=== PATIENT | male | born 1950 | race Caucasian/White ===

== ENCOUNTER → 2019-11-07 19:00 | Outpatient (CLI) | payer MEDICARE | END | disposition home or self-care (01) | LOC: D.LABREF 19:00 | PROVIDERS: ATTEND Orthopaedic Surgery | DX: M17.12 Unilateral primary osteoarthritis, left knee (principal) ==

== ENCOUNTER 2019-11-26 06:40 | Inpatient (IN) | payer MEDICARE ==
--- NOTE | 2019-11-21 12:04 | NUR ---
T- 98.1 BP LA- 127/78 RR- 16 HR- 76 POX- 94%
[2019-11-21 12:24] LABS: CALC OSMOLALITY 268 mosm/kg (275-300); CARBON DIOXIDE 32.4 mmol/L (21.0-32.0); CHLORIDE - SERUM 98 mmol/L (98-107); CREATININE - SERUM 0.9 mg/dL (0.6-1.3); GLUCOSE 98 mg/dL (74-106); POTASSIUM - SERUM 3.6 mmol/L (3.5-5.1); SODIUM 134 mmol/L (136-145); UREA NITROGEN 14 mg/dL (7-18); eGFR NON AFRICAN AMERICAN 89 mL/min (90-120)
[2019-11-21 12:28] LABS: APTT 28.3 SECONDS (22.8-39.4); INR 0.97 (0.85-1.17); PROTIME 12.9 SECONDS (11.6-15.0)
[2019-11-21 12:29] LABS: BASOPHILS 0.4 % (0-2); HEMATOCRIT 42.1 % (42.0-54.0); HEMOGLOBIN 14.5 g/dL (13.5-17.5); IMMATURE GRANULOCYTES 0.6 % (0-5); LYMPHOCYTES 35.6 % (15-50); MCH 31.6 pg (26.0-34.0); MCHC 34.4 g/dL (31.0-37.0); MCV 91.7 fL (80.0-100.0); MONOCYTES 7.3 % (2-11); NEUTROPHILS 54.1 % (40-80); PLATELET COUNT 291 10x3/uL (130-400); RBC 4.59 10x6/uL (4.20-6.10); RDW 13.1 % (11.5-14.5); WBC 7.1 10x3/uL (4.8-10.8)
[2019-11-21 12:55] LABS: BACTERIA MANY /hpf (NEGATIVE); BILIRUBIN NEGATIVE (NEGATIVE); EPITHELIAL CELLS 0-5 /hpf (0-5); GLUCOSE NEGATIVE (NEGATIVE); KETONE NEGATIVE (NEGATIVE); NITRITE POSITIVE (NEGATIVE); RED CELLS - URINE OCC /hpf (0-5); UROBILINOGEN NORMAL (NORMAL); WHITE CELLS - URINE 25-50 /hpf (NEGATIVE)
[2019-11-26] VITALS (13 sets, daily range): BP systolic 113–152; BP diastolic 61–90; BMI 34.8
[~2019-11-26] VITALS: Ht 157.5 cm; Wt 86.2 kg
[~2019-11-26 06:40] MED LIST: HYDROCHLOROTHIA25 MG PO; K-DUR20 MEQ PO; KLONOPIN1 MG PO; NEURONTIN 300300 MG PO; OMEPRAZOLE20 M1 PO; VITAMIN D3 PO
[2019-11-26] MEDS ORDERED: MACRODANTIN100 MG PO (06:58)
[2019-11-26 08:32] LABS: BILIRUBIN NEGATIVE (NEGATIVE); GLUCOSE NEGATIVE (NEGATIVE); KETONE NEGATIVE (NEGATIVE); NITRITE NEGATIVE (NEGATIVE); UROBILINOGEN NORMAL (NORMAL)
[2019-11-26 08:33] LABS: BACTERIA FEW /hpf (NEGATIVE); EPITHELIAL CELLS 0-5 /hpf (0-5); RED CELLS - URINE 0-5 /hpf (0-5); WHITE CELLS - URINE OCC /hpf (NEGATIVE)
--- NOTE | 2019-11-26 09:52 | NUR ---
LEFT LEG CLEANSED FROM TOUNIQUET TO TOES CIRCUMFERENTIALLY WITH ALCOHOL AND HIBECLENS PRIOR TO CHLORAPREP X3. NURSE IN STERILE ATTIRE FOR PREP.
--- NOTE | 2019-11-26 11:15 | NUR ---
PT RECEIVED TO ROOM 1209 VIA BED FROM RECOVERY. REMAINS A LITTLE GROGGY FROM ANESTHESIA, BUT EASILY AWAKENS, ALERT ORIENTED TO PERSON PLACE TIME AND SITUATION. RESP EVEN AND UNLABORED. IV TO LEFT HAND WITH LR @ 100ML/HR, INFUSING VIA PUMP. SITE WITHOUT REDNESS OR EDEMA. DRESSING C/D/I TO LEFT LOWER EXTREMITY WITH IMMOBILIZER IN PLACE AND ICE PACK. PT DENIES ANY FEELING OR ABILITY TO MOVE LEFT LOWER EXTREMITY. PT DOES VOICE PAIN 3/10 IN POSTERIOR LEFT UPPER LEG AT THIS TIME. PULSES PALPABLE. EXTREMITY WARM TO TOUCH. SCD NOTED TO RIGHT LOWER EXTREMITY. PLEXI PULSE PLACED TO LEFT FOOT. INSTRUCTED PT ON INCENTIVE SPIROMETRY AT THIS TIME. O2 @ 2L NC IN PLACE. ORIENTED TO CL AND BED CONTROLS. BED ALARM ACTIVATED. DENIES FURTHER NEEDS OR QUESTIONS AT THIS TIME. CL WITHIN REACH. CONTINUE POC
--- NOTE | 2019-11-26 12:50 | NUR ---
PT ASSISTED WITH BEDPAN. PT VOIDED 500ML CLEAR YELLOW URINE.
--- NOTE | 2019-11-26 19:00 | NUR ---
REC'D REPORT. PATIENT RESTING IN BED WITH NO S/S OF DISTRESS. BED IN LOWEST POSITION, CL IN REACH, BED ALARM ON. PATIENT DENIES NEEDS AT THIS TIME. BED IN LOWEST POSITION AND CALL LIGHT WITHIN REACH. ENCOURAGED THE PATIENT TO CALL IF SHE HAS NEEDS. WILL CONTINUE TO MONITOR.
[2019-11-26] MEDS ORDERED: EFFEXOR XR150 MG PO (20:19)
--- NOTE | 2019-11-26 21:53 | NUR ---
ADMINISTERED MEDS PER ORDERS. ASSESSMENT COMPLETED. ASSISTED PATIENT ON AND OFF BEDPAN. PATIENT DENIES OTHER NEEDS. ENCOURAGED TO CALL. WILL CONTINUE TO MONITOR.
[2019-11-27 04:42] VITALS: BP 148/84
--- NOTE | 2019-11-27 07:17 | NUR ---
PT RESTING QUIETLY IN BED WITH EYES CLOSED. RESP EVEN AND UNLABORED. O2 @ 1.5L NC IN PLACE. IV TO RIGHT HAND WITH 1/2 NS @ 50ML/HR INFUSING VIA PUMP. SITE WITHOUT REDNESS OR EDEMA. DRESSING TO LEFT LOWER EXTREMITY INTACT, CLEAN AND DRY. IMMOBILIZER NOTED TO LEFT EXTREMITY. EXTREMITY WARM TO TOUCH, PULSE PALPABLE. CL WITHIN REACH. CONTINUE POC
[2019-11-27 08:22] VITALS: BP 137/69
[2019-11-27 08:22] LABS: HEMOGLOBIN 13.1 g/dL (12-16); MCH 31.8 pg (26.0-34.0); MCHC 35.4 g/dL (31.0-37.0); MCV 89.8 fL (80.0-100.0); MEAN PLATELET VOLUME 9.3 fL (7.4-10.4); RBC 4.12 10x6/uL (4.00-5.40); RDW 13.1 % (11.5-14.5); WBC 10.3 10x3/uL (4.8-10.8)
--- NOTE | 2019-11-27 09:15 | OP ---
PATIENT NAME: STEPHAN WASHINGTON MEDICAL RECORD: [id number] :54 LOCATION:D.M3 D.1209 ADMISSION DATE:11/26/19 SURGEON: OPAL HUSSEIN MD DATE OF OPERATION: 11/26/2019 PREOPERATIVE DIAGNOSIS: Degenerative arthritis of the left knee. POSTOPERATIVE DIAGNOSIS: Degenerative arthritis of the left knee. PROCEDURE: Left total knee arthroplasty. SURGEON: Opal Hussein MD PHOTOCOMPOSING MACHINE OPERATOR: JERRELL Thomas. INTRAOPERATIVE COMPLICATIONS: None. SUMMARY OF PATHOLOGIC FINDINGS: The patient was indeed found to have severe degenerative arthritis bicompartmentally. 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 IMPLANTS USED: AutoESL Triathlon total knee arthroplasty system -- press fit size 5 distal femur, size 5 tibial baseplate, size 11 polyethylene insert, and a size 9 x 33 symmetric patella. OPERATIVE SUMMARY IN DETAIL: After obtaining the appropriate preoperative orthopedic surgery consent as well as anesthetic consultation, evaluation, and clearance, the patient was brought to the operating room and placed on the operating table in the supine position. After adequate general laryngeal mask airway was administered, a tourniquet was placed about the proximal aspect of the left lower extremity. The left lower extremity was then prepped and draped in a routine sterile fashion. The leg was elevated, exsanguinated, and the tourniquet was inflated to 350 mmHg. At this point, the appropriate time-out was taken and agreed upon by all given the patient's unique identifiers. Midline incision was taken down for paramedian arthrotomy. Paramedian arthrotomy was performed. Distal femur was exposed. Soft tissue excision was done in the usual fashion. Distal intramedullary guide hole was created for intramedullary guided distal femoral cut. Distal femoral cut was made. This was followed by intramedullary guided proximal tibial cut. The gap motion picture director was utilized at this point for the appropriate size and polyethylene. It did appear that the knee was well balanced with the cuts made and the needed size of 11 polyethylene. Measurements were then taken and showed the femur to be a size 5. Distal femoral chamfer cuts were made followed by insertion of the trials corresponding to the above-mentioned implants. They were taken through range of motion and found to be stable in all planes. Final distal femoral and proximal tibial preparations were then followed by excision of the arthritic aspect of the patellar articular surface. After final patellar preparations were made, the knee cavity was irrigated in pulsatile lavage fashion. All bony ends were dried. The press-fit components were put into place with good position and placement. The knee was taken through range of motion and found to be stable with good patellar tracking. A gram of vancomycin and a gram of tobramycin were placed into the knee cavity. The paramedian arthrotomy was closed with #2 Ethibond by JERRELL Thomas, and also with #1 Vicryl, 2-0 Vicryl, and skin sarahi. Sterile dressings were applied. The patient was awakened, taken to OPERATIVE REPORT [id number] STEPHAN WASHINGTON the recovery room in stable condition. All final needle and sponge counts were correct. NTS:[id number] Voice Confirmation ID: [id number] DOCUMENT ID: [id number] KEENAN ROONEY, OPAL VILLAFANA at 0915 CC: [id number] DICTATION DATE: 11/26/19941 BOOKING PRIZER: 11/26/192041 ADM IN [facility] [address] [id number]
[2019-11-27 09:17] VITALS: Ht 157.5 cm; Wt 86.2 kg
--- NOTE | 2019-11-27 10:27 | NUR ---
RETURN PHONE CALL FROM BELLA WITH [employer] RETURNED PHONE CALL REGARDING DOSAGE OF EFFEXOR. REPORTED PT IS PRESCRIBED 150MG OF EFFEXOR ER DAILY. CONTACTED [facility] IN PHARMACY TO UPDATE MEDICAL RECORD
[2019-11-27 11:00] VITALS: BP 128/69
[2019-11-27 14:59] VITALS: BP 138/72
--- NOTE | 2019-11-27 16:49 | MORECARE ---
CASE MANAGEMENT DISCHARGE SUMMARY PATIENT: STEPHAN WASHINGTON UNIT: [id number] ADM DATE: 11/26/19 AGE: 69 : 52 SEX: F ROOM/BED: D.1209 AUTHOR: NURY HOUSTON PHYSICIAN: REFERRING PHYSICIAN: OPAL HUSSEIN MD DATE OF SERVICE: 11/27/19 Discharge Plan Patient Name: STEPHAN WASHINGTON Facility: [facility]:[place] : 1950 Planned Disposition: Home Health Service Anticipated Discharge Date: 11/28/19 Discharge Date: Expected LOS: 2 Initial Reviewer: [email or web address] Initial Review Date: 11/27/2019 Generated: 11/27/19 5:49 pm DCPIA - Discharge Planning Initial Assessment Updated by [email or web address]: Eugenia Adams on 11/27/19 4:47 pm * Is the patient Alert and Oriented? Yes * How many steps to enter\exit or inside your home? ramp * PCP Nini Bernal at [facility] in [place]. * Pharmacy [facility], [facility], * Preadmission Environment Home with Family * ADLs Independent * Equipment Grab Bars Shower Chair * List name and contact numbers for known caregivers / representatives who currently or will assist patient after discharge: Winsotn Washington, Spouse, Marietta Parr, Sister, * Verbal permission to speak to the caregivers and representatives has been obtained from the patient. Yes * Community resources currently utilized None * Additional services required to return to the preadmission environment? Yes * Can the patient safely return to the preadmission environment? Yes * Has this patient been hospitalized within the prior 30 days at any hospital? No Patient Name: STEPHAN WASHINGTON Page [id number] at 1649 All edits/amendments must be made on the electronic document DICTATION DATE: 11/27/191648 TRADITIONAL CHINESE HERBALIST: JOSEPHINE 11/27/191648 RPT#: [id number] DC DATE: STATUS: ADM IN [id number] [place] [address] END OF REPORT
--- NOTE | 2019-11-27 17:03 | MORECARE ---
CASE MANAGEMENT DISCHARGE SUMMARY PATIENT: STEPHAN WASHINGTON UNIT: [id number] ADM DATE: 11/26/19 AGE: 69 : 52 SEX: F ROOM/BED: D.1209 AUTHOR: CELSO,DOC PHYSICIAN: REFERRING PHYSICIAN: OPAL HUSSEIN MD DATE OF SERVICE: 11/27/19 Discharge Plan Patient Name: STEPHAN WASHINGTON Facility: [facility]:[place] : 1950 Planned Disposition: Home Health Service Anticipated Discharge Date: 11/28/19 Discharge Date: Expected LOS: 2 Initial Reviewer: [email or web address] Initial Review Date: 11/27/2019 Generated: 11/27/19 6:02 pm Comments DCP- Discharge Planning Updated by [email or web address]: Eugenia Adams on 11/27/19 3:[address] Patient Name: STEPHAN WASHINGTON Admission Status: Elective Accout number: [id number] Admission Date: 11-26-2019 : 1950 Admission Diagnosis: Attending: OPAL HUSSEIN Current LOS: 1 Anticipated DC Date: 11-28-2019 Planned Disposition: Home Health Service Primary Insurance: [facility] MEDICARE SOLUTIONS Discharge Planning Comments: Late entry for ~ 14:20: CM met with patient and spouse to discuss discharge planning /needs. Patient states she would like to discharge to home with home health. But if therapist thinks Outpatient therapy, she is willing to go to outpatient therapy near [place]. Patient signed CALV[facility] for [facility], Outpatient therapy near [facility], and [facility]. Patient states home environment is safe. Her , Winston, will transport her home upon discharge and to Outpatient therapy-if she doesn't get therapy through home health. Patient and spouse have been working with [facility] who will deliver BSC, CPM, and walker. Patient spouse also requested Cold Therapy Unit. CM called and spoke with Samantha awng/Dr. Hussein. States it's okay for patient to get Cold Therapy Unit as long as their insurance will cover it. MICHAEL called and spoke with Manjinder about expected DC tomorrow, delivery of BSC/Walker/CPM and request for Cold Therapy Unit. Manjinder stated the patient would have a $200-250 deductible/copay with the equipment she has ordered and the Cold Therapy Unit would not increase that deductible/copay. States he will call and discuss it with the patient and her . DC IMM explained and signed. CM will continue to follow and assist as needed with discharge planning / needs. Erco Machine Operator: Eugenia Adams DCPIA - Discharge Planning Initial Assessment Updated by [id number]: Eugenia Adams on 11/27/19 4:47 pm * Is the patient Alert and Oriented? Yes * How many steps to enter\exit or inside your home? ramp * PCP Nini Bernal at [facility] in [place]. * Pharmacy [facility], [facility], * Preadmission Environment Home with Family * ADLs Independent * Equipment Grab Bars Shower Chair * List name and contact numbers for known caregivers / representatives who currently or will assist patient after discharge: Winston Washington, Spouse, Marietta Parr, Sister, * Verbal permission to speak to the caregivers and representatives has been obtained from the patient. Yes * Community resources currently utilized None * Additional services required to return to the preadmission environment? Yes * Can the patient safely return to the preadmission environment? Yes * Has this patient been hospitalized within the prior 30 days at any hospital? No Coverage Notice Reviewer: [email or web address] Adams Notice Issued Date-Time: 11/27/2019 14:20 Notice Type: IM Discharge Notice Notice Delivered To: Patient Relationship to Patient: Self Manager Utilization Review Name: Delivery Method: HAND - Hand Delivered Lizbeth Days: Prior Verbal Notification: Recipient Understood Notice: Yes Recipient Signature: Yes Med Rec Note Co-signed by Attending: Coverage Notice Comment: Reviewer: [email or web address] Giselle Adams Notice Issued Date-Time: 11/27/2019 14:20 Notice Type: Patient Choice Letter Notice Delivered To: Patient Relationship to Patient: Self Manager Utilization Review Name: Delivery Method: HAND - Hand Delivered Lizbeth Days: Prior Verbal Notification: Recipient Understood Notice: Yes Recipient Signature: Yes Med Rec Note Co-signed by Attending: Coverage Notice Comment: [facility], [facility], Outpatient therapy near [facility]. Last DP export: 11/27/19 3:50 p Patient Name: STEPHAN WASHINGTON Page [id number] at 1703 All edits/amendments must be made on the electronic document DICTATION DATE: 11/27/191701 DRAMA CRITIC: JOSEPHINE 11/27/191701 RPT#: [id number] DC DATE: STATUS: ADM IN [facility] [address] [place] [address] END OF REPORT
[2019-11-27 19:30] VITALS: BP 124/60
[2019-11-27 19:40] VITALS: BP 150/74
--- NOTE | 2019-11-27 19:45 | NUR ---
PATIENT IS RESTING IN BED. CPM ON LEFT LEG. SHE IS ALERT AND ORIENTED. SHE WANTS PAIN MEDS, BUT THEY ARE NOT DUE FOR ANOTHER 2 HOURS. I GAVE HER HER KLONIPIN AND GABAPENTIN. I HOPE THEY WILL HELP WITH HER PAIN.
[2019-11-28 00:15] VITALS: BP 150/84
[2019-11-28 04:04] VITALS: BP 146/74
--- NOTE | 2019-11-28 05:15 | NUR ---
PATIENT SLEPT SOME LAST NIGHT. CPM WAS TAKEN OFF EARLY SO PATIENT COULD VOID. PAIN PILL GIVEN THIS MORNING, AND CPM PUT BACK ON THIS AM. WE WILL CONTINUE TO MONITOR PAIN LEVEL.
[2019-11-28 07:18] LABS: HEMATOCRIT 37.3 % (36.0-48.0); HEMOGLOBIN 13.4 g/dL (12-16); MCHC 35.9 g/dL (31.0-37.0); MEAN PLATELET VOLUME 8.9 fL (7.4-10.4); RBC 4.19 10x6/uL (4.00-5.40); RDW 13.4 % (11.5-14.5); WBC 11.4 10x3/uL (4.8-10.8)
--- NOTE | 2019-11-28 07:55 | NUR ---
PATIENT ALERT AND ORIENTED. RESTING QUIETLY IN BED WITH EYES OPEN. RESPIRATIONS EVEN NONLABORED. ON CPM. SHAKEEL WRAP ON LEFT LEG. CLEAN DRY IN TACT. NO SIGNS OF DISTRESS NOTED. IV SALINE LOCK RIGHT HAND.DENIES FURTHER NEEDS. SIDE RAILS UP. CALL LIGHT IN REACH. WILL CONTINUE TO MONITOR FOR SAFETY.
[2019-11-28 08:05] VITALS: BP 162/75
--- NOTE | 2019-11-28 10:50 | NUR ---
PATIENT FELL. NO SIGNS OF DISTRESS. STATES "NOTHING IS HURT." RETURNED BACK TO BED. PATIENT WAS STANDING AT THE SINK WITH HER WALKER. BRUSHING TEETH. LOST BALANCE AND FELL. DENIES FURTHER NEEDS. SIDE RAILS UP X3. CALL LIGHT IN REACH. NOTIFIED STRAND BUNCHER FINE WIRE. WILL CONTINUE TO MONITOR FOR SAFETY.
--- NOTE | 2019-11-28 10:55 | NUR ---
CONTACTED LAKISHA ABOUT PATIENT FALL. SAID SHE WILL LET KEENAN KNOW. CSTAR PUT IN. WILL CONTINUE TO MONITOR FOR SAFETY.
--- NOTE | 2019-11-28 12:52 | MORECARE ---
CASE MANAGEMENT DISCHARGE SUMMARY PATIENT: STEPHAN WASHINGTON UNIT: [id number] ADM DATE: 11/26/19 AGE: 69 : 52 SEX: F ROOM/BED: D.1209 AUTHOR: CELSO,DOC PHYSICIAN: REFERRING PHYSICIAN: OPAL HUSSEIN MD DATE OF SERVICE: 11/28/19 Discharge Plan Patient Name: STEPHAN WASHINGTON Facility: [facility]:[place] : 1950 Planned Disposition: Home Health Service Anticipated Discharge Date: 11/28/19 Discharge Date: Expected LOS: 2 Initial Reviewer: [email or web address] Initial Review Date: 11/27/2019 Generated: 11/28/19 1:51 pm Comments DCP- Discharge Planning Updated by [email or web address]: Eugenia Adams on 11/27/19 3:[address] Patient Name: STEPHAN WASHINGTON Admission Status: Elective Accout number: [id number] Admission Date: 11-26-2019 : 1950 Admission Diagnosis: Attending: OPAL HUSSEIN Current LOS: 1 Anticipated DC Date: 11-28-2019 Planned Disposition: Home Health Service Primary Insurance: [facility] MEDICARE SOLUTIONS Discharge Planning Comments: Late entry for ~ 14:20: CM met with patient and spouse to discuss discharge planning /needs. Patient states she would like to discharge to home with home health. But if therapist thinks Outpatient therapy, she is willing to go to outpatient therapy near [place]. Patient signed CALVIN for [facility], Outpatient therapy near [facility], and [facility]. Patient states home environment is safe. Her , Winston, will transport her home upon discharge and to Outpatient therapy-if she doesn't get therapy through home health. Patient and spouse have been working with [facility] who will deliver BSC, CPM, and walker. Patient spouse also requested Cold Therapy Unit. CM called and spoke with Samantha wang/Dr. Hussein. States it's okay for patient to get Cold Therapy Unit as long as their insurance will cover it. MICHAEL called and spoke with Manjinder about expected DC tomorrow, delivery of BSC/Walker/CPM and request for Cold Therapy Unit. Manjinder stated the patient would have a $200-250 deductible/copay with the equipment she has ordered and the Cold Therapy Unit would not increase that deductible/copay. States he will call and discuss it with the patient and her . DC IMM explained and signed. CM will continue to follow and assist as needed with discharge planning / needs. Therapy Aide: Eugenia Adams DCPIA - Discharge Planning Initial Assessment Updated by [email or web address]: Eugenia Adams on 11/27/19 4:47 pm * Is the patient Alert and Oriented? Yes * How many steps to enter\exit or inside your home? ramp * PCP Nini Bernal at [facility] in [place]. * Pharmacy [facility], [facility], * Preadmission Environment Home with Family * ADLs Independent * Equipment Grab Bars Shower Chair * List name and contact numbers for known caregivers / representatives who currently or will assist patient after discharge: iWnston Washington, Spouse, Marietta Parr, Sister, * Verbal permission to speak to the caregivers and representatives has been obtained from the patient. Yes * Community resources currently utilized None * Additional services required to return to the preadmission environment? Yes * Can the patient safely return to the preadmission environment? Yes * Has this patient been hospitalized within the prior 30 days at any hospital? No External Providers External Provider: [facility] Next Contact Date: Service Request Date: Service Type: Resolution: Reviewer: Comments: Coverage Notice Reviewer: [id number] Giselle Adams Notice Issued Date-Time: 11/27/2019 14:20 Notice Type: IM Discharge Notice Notice Delivered To: Patient Relationship to Patient: Self Hand Sewer Name: Delivery Method: HAND - Hand Delivered Lizbeth Days: Prior Verbal Notification: Recipient Understood Notice: Yes Recipient Signature: Yes Med Rec Note Co-signed by Attending: Coverage Notice Comment: Reviewer: [id number] Giselle Adams Notice Issued Date-Time: 11/27/2019 14:20 Notice Type: Patient Choice Letter Notice Delivered To: Patient Relationship to Patient: Self Hand Sewer Name: Delivery Method: HAND - Hand Delivered Lizbeth Days: Prior Verbal Notification: Recipient Understood Notice: Yes Recipient Signature: Yes Med Rec Note Co-signed by Attending: Coverage Notice Comment: [facility], [facility], Outpatient therapy near [facility]. Last DP export: 11/27/19 4:02 p Patient Name: STEPHAN WASHINGTON Page 18020 at 1252 All edits/amendments must be made on the electronic document DICTATION DATE: 11/28/19 1251 EXHAUST EQUIPMENT OPERATOR: JOSEPHINE 11/28/19 1251 RPT#: [id number] DC DATE: STATUS: ADM IN [facility] [address] [place] [address] END OF REPORT
--- NOTE | 2019-11-28 13:13 | MORECARE ---
CASE MANAGEMENT DISCHARGE SUMMARY PATIENT: STEPHAN WASHINGTON UNIT: [id number] ADM DATE: 11/26/19 AGE: 69 : 54 SEX: F ROOM/BED: D.1209 AUTHOR: CELSO,DOC PHYSICIAN: REFERRING PHYSICIAN: OPAL HUSSEIN MD DATE OF SERVICE: 11/28/19 Discharge Plan Patient Name: STEPHAN WASHINGTON Facility: [facility]:[place] : 1950 Planned Disposition: Home Health Service Anticipated Discharge Date: 11/28/19 Discharge Date: Expected LOS: 2 Initial Reviewer: [id number] Initial Review Date: 11/27/2019 Generated: 11/28/19 2:12 pm Comments DCP- Discharge Planning Updated by [email or web address]: Eugenia Adams on 11/28/19 12:[address] Patient Name: STEPHAN WASHINGTON Admission Status: Elective Accout number: [id number] Admission Date: 11-26-2019 : 1950 Admission Diagnosis: Attending: OPAL HUSSEIN Current LOS: 2 Anticipated DC Date: 11-28-2019 Planned Disposition: Home Health Service Primary Insurance: [facility] MEDICARE SOLUTIONS Discharge Planning Comments: CM spoke with Physical Therapy about DCP needs-Home Health vs Outpatient Therapy. PT recommended Home Health Services. CM called and spoke with Gigi at [facility]. Informed of expected discharge tomorrow and need for admission to home health Tuesday d/t high fall risk. Ray told CM they would admit patient on Tuesday. CM notified patient and spouse of plan for Home Health to admit Tuesday. Patient and spouse verbalized satisfaction and understanding. CM will continue to follow and assist as needed with discharge planning / needs. Faxed records to [facility] as requested. Audit Consultant: Eugenia Adams DCP- Discharge Planning Updated by [email or web address]: Eugenia Adams on 11/27/19 3:[address] Patient Name: STEPHAN WASHINGTON Admission Status: Elective Accout number: [id number] Admission Date: 11-26-2019 : 1950 Admission Diagnosis: Attending: OPAL HUSSEIN Current LOS: 1 Anticipated DC Date: 11-28-2019 Planned Disposition: Home Health Service Primary Insurance: [facility] MEDICARE SOLUTIONS Discharge Planning Comments: Late entry for ~ 14:20: CM met with patient and spouse to discuss discharge planning /needs. Patient states she would like to discharge to home with home health. But if therapist thinks Outpatient therapy, she is willing to go to outpatient therapy near [place]. Patient signed CALVIN for [facility], Outpatient therapy near [facility], and [facility]. Patient states home environment is safe. Her , Winston, will transport her home upon discharge and to Outpatient therapy-if she doesn't get therapy through home health. Patient and spouse have been working with [facility] who will deliver BSC, CPM, and walker. Patient spouse also requested Cold Therapy Unit. CM called and spoke with Samantha wang/Dr. Hussein. States it's okay for patient to get Cold Therapy Unit as long as their insurance will cover it. CM called and spoke with Manjinder about expected DC tomorrow, delivery of BSC/Walker/CPM and request for Cold Therapy Unit. Manjinder stated the patient would have a $200-250 deductible/copay with the equipment she has ordered and the Cold Therapy Unit would not increase that deductible/copay. States he will call and discuss it with the patient and her . DC IMM explained and signed. CM will continue to follow and assist as needed with discharge planning / needs. Audit Consultant: Eugenia Adams DCPIA - Discharge Planning Initial Assessment Updated by [email or web address]: Eugenia Adams on 11/27/19 4:47 pm * Is the patient Alert and Oriented? Yes * How many steps to enter\exit or inside your home? ramp * PCP Nini Bernal at [facility] in [place]. * Pharmacy [facility], [facility], * Preadmission Environment Home with Family * ADLs Independent * Equipment Grab Bars Shower Chair * List name and contact numbers for known caregivers / representatives who currently or will assist patient after discharge: Winston Washington, Spouse, Marietta Parr, Sister, * Verbal permission to speak to the caregivers and representatives has been obtained from the patient. Yes * Community resources currently utilized None * Additional services required to return to the preadmission environment? Yes * Can the patient safely return to the preadmission environment? Yes * Has this patient been hospitalized within the prior 30 days at any hospital? No Coverage Notice Reviewer: [id number] Adams Notice Issued Date-Time: 11/27/2019 14:20 Notice Type: IM Discharge Notice Notice Delivered To: Patient Relationship to Patient: Self Corpsman Name: Delivery Method: HAND - Hand Delivered Lizbeht Days: Prior Verbal Notification: Recipient Understood Notice: Yes Recipient Signature: Yes Med Rec Note Co-signed by Attending: Coverage Notice Comment: Reviewer: [id number] Adams Notice Issued Date-Time: 11/27/2019 14:20 Notice Type: Patient Choice Letter Notice Delivered To: Patient Relationship to Patient: Self Corpsman Name: Delivery Method: HAND - Hand Delivered Lizbeth Days: Prior Verbal Notification: Recipient Understood Notice: Yes Recipient Signature: Yes Med Rec Note Co-signed by Attending: Coverage Notice Comment: [facility], [facility], Outpatient therapy near [facility]. Last DP export: 11/28/19 11:51 a Patient Name: STEPHAN WASHINGTON Page [id number] at 1313 All edits/amendments must be made on the electronic document DICTATION DATE: 11/28/19 1312 PROFESSOR OF CHEMISTRY: JOSEPHINE 11/28/19 1312 RPT#: [id number] DC DATE: STATUS: ADM IN [facility] [address] [place] [address] END OF REPORT
[2019-11-28 13:43] VITALS: BP 152/87
--- NOTE | 2019-11-28 14:30 | NUR ---
PATIENT ALERT AND ORIENTED. FAMILY AT BEDSIDE. RESTING IN BED WITH EYES OPEN. RESPIRATIONS EVEN NONLABORED. NO SIGNS OF DISTRESS NOTED. DENIES FURTHER NEEDS. SIDE RAILS UP X3. CALL LIGHT IN REACH. WILL CONTINUE TO MONITOR FOR SAFETY.
--- NOTE | 2019-11-28 14:54 | MORECARE ---
CASE MANAGEMENT DISCHARGE SUMMARY PATIENT: STEPHAN WASHINGTON UNIT: [id number] ADM DATE: 11/26/19 AGE: 69 : 52 SEX: F ROOM/BED: D.1209 AUTHOR: CELSO,DOC PHYSICIAN: REFERRING PHYSICIAN: OPAL HUSSEIN MD DATE OF SERVICE: 11/28/19 Discharge Plan Patient Name: STEPHAN WASHINGTON Facility: [facility]:[place] : 1950 Planned Disposition: Home Health Service Anticipated Discharge Date: 11/28/19 Discharge Date: Expected LOS: 2 Initial Reviewer: [email or web address] Initial Review Date: 11/27/2019 Generated: 11/28/19 3:53 pm Comments DCP- Discharge Planning Updated by [email or web address]: Eugenia Adams on 11/28/19 12:[address] Patient Name: STEPHAN WASHINGTON Admission Status: Elective Accout number: [id number] Admission Date: 11-26-2019 : 1950 Admission Diagnosis: Attending: OPAL HUSSEIN Current LOS: 2 Anticipated DC Date: 11-28-2019 Planned Disposition: Home Health Service Primary Insurance: [facility] MEDICARE SOLUTIONS Discharge Planning Comments: CM spoke with Physical Therapy about DCP needs-Home Health vs Outpatient Therapy. PT recommended Home Health Services. CM called and spoke with Gigi at [facility]. Informed of expected discharge tomorrow and need for admission to home health Tuesday d/t high fall risk. Ray told CM they would admit patient on Tuesday. CM notified patient and spouse of plan for Home Health to admit Tuesday. Patient and spouse verbalized satisfaction and understanding. CM will continue to follow and assist as needed with discharge planning / needs. Faxed records to [facility] as requested. Sow Farm Barn Technician: Eugenia Adams DCP- Discharge Planning Updated by [id number]: Eugenia Adams on 11/27/19 3:[address] Patient Name: STEPHAN WASHINGTON Admission Status: Elective Accout number: [id number] Admission Date: 11-26-2019 : 1950 Admission Diagnosis: Attending: OPAL HUSSEIN Current LOS: 1 Anticipated DC Date: 11-28-2019 Planned Disposition: Home Health Service Primary Insurance: [facility] MEDICARE SOLUTIONS Discharge Planning Comments: Late entry for ~ 14:20: CM met with patient and spouse to discuss discharge planning /needs. Patient states she would like to discharge to home with home health. But if therapist thinks Outpatient therapy, she is willing to go to outpatient therapy near [place]. Patient signed CALVIN for [facility], Outpatient therapy near [facility], and [facility]. Patient states home environment is safe. Her , Winston, will transport her home upon discharge and to Outpatient therapy-if she doesn't get therapy through home health. Patient and spouse have been working with [facility] who will deliver BSC, CPM, and walker. Patient spouse also requested Cold Therapy Unit. CM called and spoke with Samantha wang/Dr. Hussein. States it's okay for patient to get Cold Therapy Unit as long as their insurance will cover it. CM called and spoke with Manjinder about expected DC tomorrow, delivery of BSC/Walker/CPM and request for Cold Therapy Unit. Manjinder stated the patient would have a $200-250 deductible/copay with the equipment she has ordered and the Cold Therapy Unit would not increase that deductible/copay. States he will call and discuss it with the patient and her . DC IMM explained and signed. CM will continue to follow and assist as needed with discharge planning / needs. Sow Farm Barn Technician: Eugenia Adams DCPIA - Discharge Planning Initial Assessment Updated by [id number]: Eugenia Adams on 11/27/19 4:47 pm * Is the patient Alert and Oriented? Yes * How many steps to enter\exit or inside your home? ramp * PCP Nini Bernal at [facility] in [place]. * Pharmacy [facility], [facility], * Preadmission Environment Home with Family * ADLs Independent * Equipment Grab Bars Shower Chair * List name and contact numbers for known caregivers / representatives who currently or will assist patient after discharge: Winston Washington, Spouse, Marietta Parr, Sister, * Verbal permission to speak to the caregivers and representatives has been obtained from the patient. Yes * Community resources currently utilized None * Additional services required to return to the preadmission environment? Yes * Can the patient safely return to the preadmission environment? Yes * Has this patient been hospitalized within the prior 30 days at any hospital? No Coverage Notice Reviewer: [id number] Adams Notice Issued Date-Time: 11/27/2019 14:20 Notice Type: IM Discharge Notice Notice Delivered To: Patient Relationship to Patient: Self Petrophysicist Name: Delivery Method: HAND - Hand Delivered Lizbeth Days: Prior Verbal Notification: Recipient Understood Notice: Yes Recipient Signature: Yes Med Rec Note Co-signed by Attending: Coverage Notice Comment: Reviewer: [id number] Adams Notice Issued Date-Time: 11/27/2019 14:20 Notice Type: Patient Choice Letter Notice Delivered To: Patient Relationship to Patient: Self Petrophysicist Name: Delivery Method: HAND - Hand Delivered Lizbeth Days: Prior Verbal Notification: Recipient Understood Notice: Yes Recipient Signature: Yes Med Rec Note Co-signed by Attending: Coverage Notice Comment: [facility], [facility], Outpatient therapy near [facility]. Last DP export: 11/28/19 12:13 p Patient Name: STEPHAN WASHINGTON Page [id number] at 1454 All edits/amendments must be made on the electronic document DICTATION DATE: 11/28/191452 FILTER TENDER: JOSEPHINE 11/28/19 145 RPT#: [id number] DC DATE: STATUS: ADM IN [facility] [address] [place] [address] END OF REPORT
--- NOTE | 2019-11-28 18:45 | NUR ---
I have reviewed this patient and I concur with the Shift Assessment completed by the Licensed Practical Nurse today this shift.
--- NOTE | 2019-11-28 18:51 | NUR ---
PATIENT ALERT AND ORIENTED. RESTING QUIETLY IN BED WITH EYES CLOSED. RESPIRATIONS EVEN NON LABORED. NO SIGNS OF DISTRESS NOTED. DENIES FURTHER NEEDS. SIDE RAILS UP X3. CALL LIGHT IN REACH. WILL CONTINUE TO MONITOR FOR SAFETY.
[2019-11-28 20:00] VITALS: BP 141/78
--- NOTE | 2019-11-28 20:00 | NUR ---
PATIENT RESTING IN BED WITH EYES OPEN. NO S/S OF ACUTE DISTRESS. PATIENT C/O PAIN IN LOWER LEFT ABDOMEN AND LEFT KNEE. PERCOCET GIVEN. PATIENT HAS NO IV AT THIS TIME. PATIENT IS POST-OP DAY 2 OF A LEFT KNEE, SHAKEEL BANDAGE AND DRESSING C/D/I. PATIENT IS X1 ASSIST TO THE BEDSIDE COMMODE. CALL LIGHT WITHIN REACH. WILL CONTINUE TO MONITOR.
--- NOTE | 2019-11-28 22:43 | NUR ---
I have reviewed this patient and I concur with the Shift Assessment completed by the Licensed Practical Nurse today this shift.
[2019-11-29 04:00] VITALS: BP 125/70
--- NOTE | 2019-11-29 05:30 | NUR ---
PATIENT PUT ON CPM. NOT TIME FOR PAIN MEDICINE YET. NO S/S OF ACUTE DISTRESS. NO C/O AT THIS TIME. CALL LIGHT WITHIN REACH. WILL CONTINUE TO MONITOR.
--- NOTE | 2019-11-29 07:29 | NUR ---
PATIENT ALERT AND ORIENTED. RESTING QUIETLY IN BED WITH EYES CLOSED. RESPIRATIONS EVEN NONLABORED. NO SIGNS OF DISTRESS NOTED. ON CPM. SHAKEEL WRAP ON LEFT LEG CLEAN DRY INTACT. NO IV, REMOVED YESTERDAY. DENIES FURTHER NEEDS. SIDE RAILS UP X3. CALL LIGHT IN REACH. WILL CONTINUE TO MONITOR FOR SAFETY.
[2019-11-29 07:53] VITALS: BP 129/75
[2019-11-29] MEDS ORDERED: ELIQUIS2.5 MG PO (08:24)
[2019-11-29] MEDS ORDERED: PERCOCET 7.5/321 TAB PO (08:25)
--- NOTE | 2019-11-29 12:05 | NUR ---
WENT OVER DISCHARGE WITH PATIENT AND FAMILY. ALL QUESTIONS ANSWERED. PAPERWORK SIGNED. IV DC. SHAKEEL WRAP TAKEN OFF. DRESSING WAS DRY AND INTACT. NO NEED FOR DRESSING CHANGE.
--- NOTE | 2019-11-29 12:28 | NUR ---
TOOK PATIENT DOWN BY WHEELCHAIR.FAMILY HELPED TRANFER INTO CAR WITH NO DIFFICULTIES. PATIENT DISCHARGED HOME.
--- NOTE | 2019-11-30 09:31 | MORECARE ---
CASE MANAGEMENT DISCHARGE SUMMARY PATIENT: STEPHAN WASHINGTON UNIT: [id number] ADM DATE: 11/26/19 AGE: 69 : 52 SEX: F ROOM/BED: D.1209 AUTHOR: CELSO,DOC PHYSICIAN: REFERRING PHYSICIAN: OPAL HUSSEIN MD DATE OF SERVICE: 11/30/19 Discharge Plan Patient Name: STEPHAN WASHINGTON Facility: [facility]:[place] : 1950 Planned Disposition: Home Health Service Anticipated Discharge Date: 11/28/19 Discharge Date: 11/29/2019 Expected LOS: 2 Initial Reviewer: [email or web address] Initial Review Date: 11/27/2019 Generated: 11/30/19 10:30 am Comments DCP- Discharge Planning Updated by [id number]: Eugenia Adams on 11/28/19 12:[address] Patient Name: STEPHAN WASHINGTON Admission Status: Elective Accout number: [id number] Admission Date: 11-26-2019 : 1950 Admission Diagnosis: Attending: OPAL HUSSEIN Current LOS: 2 Anticipated DC Date: 11-28-2019 Planned Disposition: Home Health Service Primary Insurance: [facility] MEDICARE SOLUTIONS Discharge Planning Comments: CM spoke with Physical Therapy about DCP needs-Home Health vs Outpatient Therapy. PT recommended Home Health Services. CM called and spoke with Gigi at [facility]. Informed of expected discharge tomorrow and need for admission to home health Tuesday d/t high fall risk. Ray told CM they would admit patient on Tuesday. CM notified patient and spouse of plan for Home Health to admit Tuesday. Patient and spouse verbalized satisfaction and understanding. CM will continue to follow and assist as needed with discharge planning / needs. Faxed records to [facility] as requested. Road Consultant: Eugenia Adams DCP- Discharge Planning Updated by [id number]: Eugenia Adams on 11/27/19 3:[address] Patient Name: STEPHAN AWSHINGTON Admission Status: Elective Accout number: [id number] Admission Date: 11-26-2019 : 1950 Admission Diagnosis: Attending: OPAL HUSSEIN Current LOS: 1 Anticipated DC Date: 11-28-2019 Planned Disposition: Home Health Service Primary Insurance: [facility] MEDICARE SOLUTIONS Discharge Planning Comments: Late entry for ~ 14:20: CM met with patient and spouse to discuss discharge planning /needs. Patient states she would like to discharge to home with home health. But if therapist thinks Outpatient therapy, she is willing to go to outpatient therapy near [place]. Patient signed CALVIN for [facility], Outpatient therapy near [facility], and [facility]. Patient states home environment is safe. Her , Winston, will transport her home upon discharge and to Outpatient therapy-if she doesn't get therapy through home health. Patient and spouse have been working with [facility] who will deliver BSC, CPM, and walker. Patient spouse also requested Cold Therapy Unit. CM called and spoke with Samantha wang/Dr. Hussein. States it's okay for patient to get Cold Therapy Unit as long as their insurance will cover it. CM called and spoke with Manjinder about expected DC tomorrow, delivery of BSC/Walker/CPM and request for Cold Therapy Unit. Manjinder stated the patient would have a $200-250 deductible/copay with the equipment she has ordered and the Cold Therapy Unit would not increase that deductible/copay. States he will call and discuss it with the patient and her . DC IMM explained and signed. CM will continue to follow and assist as needed with discharge planning / needs. Road Consultant: Eugenia Adams DCPIA - Discharge Planning Initial Assessment Updated by [email or web address]: Eugenia Adams on 11/27/19 4:47 pm * Is the patient Alert and Oriented? Yes * How many steps to enter\exit or inside your home? ramp * PCP Nini Bernal at [facility] in [place]. * [facility]acy [facility], * Preadmission Environment Home with Family * ADLs Independent * Equipment Grab Bars Shower Chair * List name and contact numbers for known caregivers / representatives who currently or will assist patient after discharge: Winston Washington, Spouse, Marietta Parr, Sister, * Verbal permission to speak to the caregivers and representatives has been obtained from the patient. Yes * Community resources currently utilized None * Additional services required to return to the preadmission environment? Yes * Can the patient safely return to the preadmission environment? Yes * Has this patient been hospitalized within the prior 30 days at any hospital? No Coverage Notice Reviewer: [id number] Adams Notice Issued Date-Time: 11/27/2019 14:20 Notice Type: IM Discharge Notice Notice Delivered To: Patient Relationship to Patient: Self Electrolog Operator Name: Delivery Method: HAND - Hand Delivered Lizbeth Days: Prior Verbal Notification: Recipient Understood Notice: Yes Recipient Signature: Yes Med Rec Note Co-signed by Attending: Coverage Notice Comment: Reviewer: [email or web address] Giselle Adams Notice Issued Date-Time: 11/27/2019 14:20 Notice Type: Patient Choice Letter Notice Delivered To: Patient Relationship to Patient: Self Electrolog Operator Name: Delivery Method: HAND - Hand Delivered Lizbeth Days: Prior Verbal Notification: Recipient Understood Notice: Yes Recipient Signature: Yes Med Rec Note Co-signed by Attending: Coverage Notice Comment: [facility], [facility], Outpatient therapy near [facility]. Reviewer: [email or web address] Giselle Worthington Notice Issued Date-Time: 11/29/2019 10:17 Notice Type: IM Discharge Notice Notice Delivered To: Patient Relationship to Patient: Electrolog Operator Name: Delivery Method: - Lizbeth Days: Prior Verbal Notification: Recipient Understood Notice: Recipient Signature: Med Rec Note Co-signed by Attending: Coverage Notice Comment: Last DP export: 11/28/19 1:54 p Patient Name: STEPHAN WASHINGTON Page [id number] at 0931 All edits/amendments must be made on the electronic document DICTATION DATE: 11/30/19929 CNC LATHE PROGRAMMER: JOSEPHINE 11/30/19929 RPT#: [id number] DC DATE:11/29/19 STATUS: DIS IN [facility] [address] [place] [address] END OF REPORT
== END 2019-11-29 17:24 | disposition home health service (06) | DRG 470 ==
LOC: EDSEX 06:40 → D.OPS 06:40 → D.SDCHOLD 10:00 → EDSTATUS 10:00 → D.M3 10:25 → D.OPS 10:35 → D.SDCHOLD 12:00 → D.OPS 12:00 → D.M3 11-29 17:24
PROVIDERS: ADMIT Orthopaedic Surgery; ATTEND Orthopaedic Surgery
PROC: 0SRD0JA Replacement of Left Knee Joint with Synthetic Substitute, Uncemented, Open Approach (ICD-10-PCS; principal; 2019-11-26 08:30)
DX: M17.12 Unilateral primary osteoarthritis, left knee (principal); M94.20 Chondromalacia, unspecified site; I10 Essential (primary) hypertension